=== PATIENT | male | born 1940 | race Asian ===

== ENCOUNTER 2017-05-02 21:38 | Inpatient (IN) | payer MEDICARE ==
[~2017-05-02] VITALS: Ht 162.6 cm; Wt 43.5 kg
[2017-05-02 20:30] VITALS: BP 146/83
--- NOTE | 2017-05-02 21:00 | NUR ---
ms/rn notes Admitted patient from [facility], With dx. of possible Tuberculosis. Patient is alert et oriented. Respiration even et unlabored. No sob noted. Vital signs stable, afebrile. Denies pain at present. With iv heplock on left ac. Skin is intact, no skin breakdown noted. No apparent distress noted. all needs attended. Will continue plan of care.
--- NOTE | 2017-05-03 07:06 | NUR ---
MS/RN CLOSING NOTE PATIENT IN BED IN STABLE CONDITION. A/O X 4. NO SINGS OF ACUTE DISTRESS. NO COMPLAIN OF PAIN OR DISCOMFORT. ADMINISTERED ALL MEDS ORDERED. WITH CONTINUOUS IVF ONGOING. ALL NEEDS ATTENDED TO. CALL LIGHT WITHIN REACH. WILL ENDORSE TO NEXT SHIFT FOR CONTINUITY OF CARE.
[2017-05-03 07:57] LABS: BASOPHILS % (AUTO) 0.2 % (0.0-2.0); HEMATOCRIT 39 % (39-51); HEMOGLOBIN 12.9 g/dL (13.5-17.5); LYMPHOCYTES # (AUTO) 0.8 /CMM (0.8-4.8); LYMPHOCYTES % (AUTO) 10.1 % (20.0-44.0); MEAN CORPUSCULAR HEMOGLOBIN 29 PG (26.0-33.0); MEAN CORPUSCULAR HGB CONC 33 g/dl (31.0-36.0); MEAN CORPUSCULAR VOLUME 88 fL (80-96); MONOCYTES # (AUTO) 0.6 /CMM (0.1-1.30); MONOCYTES % (AUTO) 7.4 % (2.0-12.0); NEUTROPHILS # (AUTO) 6.9 /CMM (1.8-8.9); NEUTROPHILS % (AUTO) 82.3 % (43.0-81.0); PLATELET COUNT (AUTO) 371 /CMM (150-450); RDW COEFFICIENT OF VARIATION 13.8 (11.5-15.0); RED BLOOD CELL COUNT(AUTO) 4.44 MIL/uL (4.5-6.0); WHITE BLOOD COUNT (AUTO) 8.4 K/uL (4.3-11.0)
[2017-05-03 08:00] VITALS: BP 140/89
[2017-05-03 08:13] LABS: CALCIUM, SERUM 8.3 mg/dL (8.5-10.1); CARBON DIOXIDE 31 mmol/L (21-32); CHLORIDE 101 mmol/L (98-107); CREATININE 0.6 mg/dL (0.6-1.3); GLUCOSE 154 mg/dL (74-106); MAGNESIUM 2.1 mg/dL (1.8-2.4); POTASSIUM 3.7 mmol/L (3.5-5.1); SODIUM SERUM 137 mmol/L (136-145); UREA NITROGEN, BLOOD 12 mg/dL (7-18)
[2017-05-03] MEDS ORDERED: FAMO20VI10 IV (08:18)
[2017-05-03] MEDS ORDERED: OMEP20CA10 PO (08:18)
[2017-05-03] MEDS ORDERED: ONDA4VIA30 IV (08:18)
[2017-05-03] MEDS ORDERED: SILO8CAP PO (08:18)
[2017-05-03] MEDS ORDERED: FAMO20TA8 PO (08:18)
[2017-05-03] MEDS ORDERED: NORM10004 IV (08:18)
[2017-05-03] MEDS ORDERED: ACET-868 PO (08:18)
[2017-05-03] MEDS ORDERED: ALBU2.5V38 IH (08:18)
[2017-05-03] MEDS ORDERED: AMOX1TAB16 PO (08:18)
[2017-05-03] MEDS ORDERED: FLUT16SP NS (08:18)
[2017-05-03] MEDS ORDERED: PIPE3.379 IV (08:18)
[2017-05-03] MEDS ORDERED: MORP2SYR IV (08:18)
[2017-05-03] MEDS ORDERED: RXVAN IV (08:18)
[2017-05-03 08:26] LABS: CHOLESTEROL 167 mg/dL (<200); HDL CHOLESTEROL 51 mg/dL (40-60); LDL 106 mg/dL (0-99); THYROID STIMULATING HORMONE 0.787 uIU/mL (0.358-3.74); TRIGLYCERIDES 36 mg/dL (30-150)
--- NOTE | 2017-05-03 10:25 | NUR ---
m/s web production assistant: notes afb sputum #1 collected and sent to lab. isolation precaution maintained. pt still coughing out blood. md aware. will continue to monitor.
--- NOTE | 2017-05-03 12:00 | NUR ---
m/s public message service supervisor: md visit seen and examined by dr. yeung at this time. pt still coughing up blood, md aware. isolation precaution maintained. will continue to monitor.
[2017-05-03 16:00] VITALS: BP 136/81
--- NOTE | 2017-05-03 17:25 | NUR ---
m/s reheater: notes afb sputum #1 collected and sent to lab. isolation precaution maintained. pt still coughing out blood. md aware. will continue to monitor.
--- NOTE | 2017-05-03 18:45 | NUR ---
m/s health information management director: notes resting quietly in bed with no distress noted. isolation precaution maintained. no c/o sob at this time. needs attended. will continue to monitor.
--- NOTE | 2017-05-03 19:25 | NUR ---
RN OPEN NOTES RECEIVED PATIENT AWAKE IN BED. A/O X4. NO SIGNS OF DISTRESS OR DISCOMFORT. BREATHING EVEN AND UNLABORED. ON 2LPM O2 VIA NC. IV ACCESS IN RAC WITH NS INFUSING, PATENT AND INTACT, NO SIGNS OF REDNESS OR INFILTRATION. BED IN LOW LOCKED POSITION WITH SIDE RAILS X2. CALL LIGHT WITHIN REACH. WILL CONTINUE TO MONITOR.
[2017-05-03 20:00] VITALS: BP 123/75
[2017-05-03 20:18] VITALS: BP 123/75
--- NOTE | 2017-05-04 07:46 | NUR ---
RN CLOSING NOTES PATIENT AWAKE IN BED. A/O X4. NO SIGNS OF DISTRESS OR DISCOMFORT. BREATHING EVEN AND UNLABORED. ON 2LPM O2 VIA NC. IV ACCESS IN RAC WITH NS INFUSING, PATENT AND INTACT, NO SIGNS OF REDNESS OR INFILTRATION. ALL NEEDS MET. NO SIGNIFICANT CHANGES THROUGH THE NIGHT. [employer] SPUTUM NEEDS TO BE COLLECTED, EARLY COLLECTION WAS NOT ENOUGH PER LAB. BED IN LOW LOCKED POSITION WITH SIDE RAILS X2. CALL LIGHT WITHIN REACH. ENDORSED TO AM SHIFT FOR ELVIRA. .
--- NOTE | 2017-05-04 07:50 | NUR ---
RN NOTES RECEIVED PT. PT AWAKE AND RESTING. A/OX3, NO S/S OF SOB OR DISTRESS. PT IS ON O2 2L VIA NC. IV ACCESS LOCATED ON RIGHT AC, 18G RUNNING NS AT 75 ML/HR. PER GLOVE BRUSHER REPORT, SPUTUM CULTURE TO BE COLLECTED. SAFETY MEASURES IN PLACE, CALL LIGHT WITHIN REACH. WILL CONTINUE TO MONITOR.
[2017-05-04 07:52] LABS: CALCIUM, SERUM 8.2 mg/dL (8.5-10.1); CARBON DIOXIDE 27 mmol/L (21-32); CHLORIDE 102 mmol/L (98-107); CREATININE 0.6 mg/dL (0.6-1.3); GLUCOSE 100 mg/dL (74-106); POTASSIUM 3.7 mmol/L (3.5-5.1); SODIUM SERUM 138 mmol/L (136-145); UREA NITROGEN, BLOOD 9 mg/dL (7-18)
[2017-05-04 08:00] VITALS: BP 131/69
[2017-05-04 16:00] VITALS: BP 117/57
--- NOTE | 2017-05-04 19:10 | NUR ---
MS RN OPENING NOTES: RECEIVED PT IN BED AND IS RESTING IN BED. PT IS A/OX3. PT COMPLAINS OF NO PAIN. NO S/S OF DISTRESS OR SOB NOTED. PT IS ON ROOM AIR AND TOLERATING WELL. CALL LIGHT WITHIN PT'S REACH. PT HAS IV ON R AC AND IS PATENT AND INTACT AND IS BEING INFUSED WITH NS AT 75 ML/HR. BED KEPT IN LOW, LOCKED POSITION, AND SIDE RAILS X 2 UP. WILL CONTINUE TO MONITOR PT.
--- NOTE | 2017-05-04 19:50 | NUR ---
RN CLOSING NOTES PT IS STABLE AND RESTING IN BED. A/OX3. NO S/S OF DISTRESS OR SOB. PT IS ON 2L O2 VIA NC. NO C/O PAIN AT THIS TIME. PRODUCTIVE COUGH REMAINS. SAFETY MEASURES IN PLACE, CALL LIGHT IN REACH. WILL ENDORSE TO COMPUTER AIDED DESIGN TECHNICIAN FOR ELVIRA.
[2017-05-04 20:00] VITALS: BP 129/68
--- NOTE | 2017-05-04 22:07 | NUR ---
MS RN NOTES: PT IS REFUSING LOVENOX. EXPLAINED TO PT RISK AND BENEFITS OF MEDICATION. PT SAID HE IS EXERCISING AND AMBULATING AROUND THE ROOM. PT STILL REFUSING LOVENOX AFTER EXPLANATION OF MEDICATION.
--- NOTE | 2017-05-05 01:37 | NUR ---
MS RN NOTES: MANUAL BARCODE ENTERED FOR 0.9% NS 1,000ML BAG. BAR GUN NOT SCANNING.
--- NOTE | 2017-05-05 07:25 | NUR ---
MS RN CLOSING NOTES: ALL NEEDS WERE ATTENDED AND ANTICIPATED FOR. PT IS RESTING IN BED AND PT IS A/OX3. PT COMPLAINS OF NO PAIN. NO S/S OF DISTRESS OR SOB NOTED. PT IS ON ROOM AIR AND TOLERATING WELL. CALL LIGHT WITHIN PT'S REACH. PT HAS IV ON R AC AND IS PATENT AND INTACT AND IS BEING INFUSED WITH NS AT 75 ML/HR. BED KEPT IN LOW, LOCKED POSITION, AND SIDE RAILS X 2 UP. ENDORSED TO AM NURSE FOR ELVIRA.
[2017-05-05 07:58] LABS: BASOPHILS % (AUTO) 0.4 % (0.0-2.0); EOSINOPHILS # (AUTO) 0.1 /CMM (0.0-0.7); EOSINOPHILS % (AUTO) 0.7 % (0.0-6.0); HEMATOCRIT 34 % (39-51); HEMOGLOBIN 11.3 g/dL (13.5-17.5); LYMPHOCYTES # (AUTO) 0.7 /CMM (0.8-4.8); LYMPHOCYTES % (AUTO) 8.3 % (20.0-44.0); MEAN CORPUSCULAR HEMOGLOBIN 29 PG (26.0-33.0); MEAN CORPUSCULAR HGB CONC 33 g/dl (31.0-36.0); MEAN CORPUSCULAR VOLUME 88 fL (80-96); MONOCYTES # (AUTO) 0.7 /CMM (0.1-1.30); MONOCYTES % (AUTO) 8.6 % (2.0-12.0); PLATELET COUNT (AUTO) 343 /CMM (150-450); RDW COEFFICIENT OF VARIATION 13.4 (11.5-15.0); RED BLOOD CELL COUNT(AUTO) 3.88 MIL/uL (4.5-6.0); WHITE BLOOD COUNT (AUTO) 8.6 K/uL (4.3-11.0)
[2017-05-05 08:00] VITALS: BP 145/78
[2017-05-05 08:07] LABS: ALBUMIN 2.6 g/dL (3.4-5.0); CALCIUM, SERUM 8.1 mg/dL (8.5-10.1); CARBON DIOXIDE 32 mmol/L (21-32); CHLORIDE 102 mmol/L (98-107); CREATININE 0.6 mg/dL (0.6-1.3); GLUCOSE 104 mg/dL (74-106); POTASSIUM 3.2 mmol/L (3.5-5.1); SODIUM SERUM 137 mmol/L (136-145); UREA NITROGEN, BLOOD 7 mg/dL (7-18)
--- NOTE | 2017-05-05 08:20 | NUR ---
RN NOTES PT IS ASLEEP AND RESTING IN BED. NO S/S OF DISTRESS OR SOB. NO C/O PAIN AT THIS TIME. PRODUCTIVE COUGH REMAINS. PT C/O DRY EYES, ARTIFICIAL TEARS GIVEN. WILL ADDRESS ALL PT NEEDS. SAFETY MEASURES IN PLACE, CALL LIGHT WITHIN REACH. WILL CONTINUE TO MONITOR.
[2017-05-05 16:00] VITALS: BP 124/66
--- NOTE | 2017-05-05 18:36 | NUR ---
RN CLOSING NOTES PT IS IN BEDSIDE CHAIR RESTING. A/OX3. PT IS ON 2L NC. NO S/S OF SOB OR DISTRESS. NO C/O PAIN AT THIS TIME. IV ACCESS REMAINS INTACT. ANTICIPATED AND MET ALL PT NEEDS. SAFETY MEASURES IN PLACE. CALL LIGHT WITHIN REACH. WILL ENDORSE TO SAW CLEANER FOR ELVIRA.
--- NOTE | 2017-05-05 19:15 | NUR ---
MS RN OPENING NOTES: RECEIVED PT IN BED RESTING. PT IS A/OX3. PT IS ON ROOM AIR AND TOLERATING WELL. NO S/S OF DISTRESS OR SOB NOTED AT THIS TIME. PT DENIES ANY PAIN. IV ACCESS OR R AC REMAINS INTACT AND PATENT AND IS BEING INFUSED WITH NS AT 5ML/HR. CALL LIGHT WITHIN PT'S REACH. BED KEPT IN LOW, LOCKED POSITION, AND SIDE RAILS X 2 UP. WILL CONTINUE TO MONITOR PT.
[2017-05-05 20:00] VITALS: BP 141/82
[2017-05-05 20:37] VITALS: BP 141/82
--- NOTE | 2017-05-05 22:30 | NUR ---
MS RN NOTES: PT IS REFUSING LOVENOX ONCE AGAIN. EXPLAINED TO PT RISK AND BENEFITS OF MEDICATION. PT SAID HE IS EXERCISING AND AMBULATING AROUND THE ROOM. PT STILL REFUSING LOVENOX AFTER EXPLANATION OF MEDICATION.
[2017-05-06 07:00] LABS: BASOPHILS # (AUTO) 0.1 /CMM (0.0-0.2); BASOPHILS % (AUTO) 0.6 % (0.0-2.0); EOSINOPHILS # (AUTO) 0.2 /CMM (0.0-0.7); EOSINOPHILS % (AUTO) 1.9 % (0.0-6.0); HEMATOCRIT 37 % (39-51); HEMOGLOBIN 12.1 g/dL (13.5-17.5); LYMPHOCYTES # (AUTO) 1.1 /CMM (0.8-4.8); LYMPHOCYTES % (AUTO) 13.1 % (20.0-44.0); MEAN CORPUSCULAR HEMOGLOBIN 29 PG (26.0-33.0); MEAN CORPUSCULAR HGB CONC 33 g/dl (31.0-36.0); MEAN CORPUSCULAR VOLUME 88 fL (80-96); MONOCYTES # (AUTO) 0.7 /CMM (0.1-1.30); MONOCYTES % (AUTO) 8.8 % (2.0-12.0); NEUTROPHILS # (AUTO) 6.3 /CMM (1.8-8.9); NEUTROPHILS % (AUTO) 75.6 % (43.0-81.0); PLATELET COUNT (AUTO) 369 /CMM (150-450); RDW COEFFICIENT OF VARIATION 13.6 (11.5-15.0); RED BLOOD CELL COUNT(AUTO) 4.18 MIL/uL (4.5-6.0); WHITE BLOOD COUNT (AUTO) 8.4 K/uL (4.3-11.0)
[2017-05-06 07:20] LABS: CALCIUM, SERUM 8.2 mg/dL (8.5-10.1); CARBON DIOXIDE 28 mmol/L (21-32); CHLORIDE 101 mmol/L (98-107); CREATININE 0.6 mg/dL (0.6-1.3); GLUCOSE 106 mg/dL (74-106); POTASSIUM 3.3 mmol/L (3.5-5.1); SODIUM SERUM 137 mmol/L (136-145); UREA NITROGEN, BLOOD 6 mg/dL (7-18)
--- NOTE | 2017-05-06 07:20 | NUR ---
MS RN CLOSING NOTES: ALL NEEDS WERE ATTENDED AND ANTICIPATED FOR. PT IS USING THE BATHROOM AT THIS TIME. PT IS A/OX3. PT IS ON ROOM AIR AND TOLERATING WELL. PT HAS NC AT BEDSIDE FOR COMFORT MEASURES. NO S/S OF DISTRESS OR SOB NOTED AT THIS TIME. PT DENIES ANY PAIN. IV ACCESS OR R AC REMAINS INTACT AND PATENT AND IS BEING INFUSED WITH NS AT 75ML/HR. CALL LIGHT WITHIN PT'S REACH. BED KEPT IN LOW, LOCKED POSITION, AND SIDE RAILS X 2 UP. ENDORSED TO AM NURSE FOR ELVIRA.
[2017-05-06 08:00] VITALS: BP 144/84
--- NOTE | 2017-05-06 08:06 | NUR ---
AM RN NOTES RECEIVED PT AWAKE, RESTING COMFORTABLY IN BED, NO SOB OR DISTRESS NOTED, NO CHEST PAIN OR DISCOMFORT, AWAITING FOR TRANSPORTATION FOR TRANSFER AT [facility]. Addendum: 05/06/17 at 0814 by JOHN CASTANEDA ADDENDUM: PLEASE DISCARD NOTED, DOCUMENTED ON WRONG PT.
--- NOTE | 2017-05-06 08:08 | NUR ---
TRANSPORTATION CALLED AND THEY ARE LATE FOR 30 MINUTES, CALLED [employer] TO INFORM, SPOKE WITH ANA FROM MANAGER OF CLINICAL. PT INFORMED WELL. Addendum: 05/06/17 at 0814 by JOHN CASTANEDA ADDENDUM: PLEASE DISCARD ABOVE NOTE, DOCUMENTED ON WRONG PT.
[2017-05-06] MEDS ORDERED: LEVO500T15 PO (10:12)
[2017-05-06 12:00] VITALS: BP 101/58
[2017-05-06 16:00] VITALS: BP 129/72
--- NOTE | 2017-05-06 16:30 | NUR ---
PT DISCHARGED TO [facility] IN STABLE CONDITION, NO SOB OR DISTRESS NOTED, NO FEVER OR PAIN, PT INSTRUCTED ABOUT CARE AND FOLLOW UP APPOINTMENTS, ALL BELONGINGS GIVEN AND PT PICKED UP BY FACILITY PERSON. LEFT FLOOR SAFELY.
== END 2017-05-06 16:26 | DRG 871 ==
LOC: TELE 21:38 → MED 23:11
DX: A41.9 Sepsis, unspecified organism (principal); J96.01 Acute respiratory failure with hypoxia; J69.0 Pneumonitis due to inhalation of food and vomit; E43 Unspecified severe protein-calorie malnutrition; J15.9 Unspecified bacterial pneumonia; J47.0 Bronchiectasis with acute lower respiratory infection; R65.20 Severe sepsis without septic shock; Z79.899 Other long term (current) drug therapy; D50.9 Iron deficiency anemia, unspecified; D47.3 Essential (hemorrhagic) thrombocythemia; E83.51 Hypocalcemia; E87.6 Hypokalemia; I70.0 Atherosclerosis of aorta
CPT/HCPCS: 36415; 71010-TC; 80048-TC; 80061-TC; 80202-TC; 82040-TC; 83735-TC; 84100-TC; 84443-TC; 85025-TC; 87116; 87206; J1650; J2543; J3370; J7030; J7060